=== PATIENT | male | born 1955 | race Caucasian/White ===

== ENCOUNTER 2023-05-24 04:20 | Inpatient (IN) | payer OTHER ==
[2023-05-23 16:53] VITALS: BMI 25.0
[2023-05-24] MEDS ORDERED: cefOXitin SODIUM 2 GM VIAL (RESTRICTED TO ID) IVPB ONE ×3 (07:30→08:10)
[2023-05-24] MEDS ORDERED: GABAPENTIN 300 MG CAPSULE PO ONE (07:30)
[2023-05-24] MEDS ORDERED: SCOPOLAMINE HYDROBROMIDE 1 PATCH PATCH.TD72 TD ONE (07:30)
[2023-05-24] MEDS ORDERED: ACETAMINOPHEN 1000 MG/100 ML BAG IVPB ONE (07:30)
[2023-05-24] MEDS ORDERED: INDOCYANINE GREEN 25 MG/10 ML VIAL IVPUSH ONE ×3 (07:41→08:57)
[2023-05-24] MEDS ORDERED: BUPIVACAINE HCL/PF 0.25% (2.5MG/ML) 10 ML VIAL ONE (07:41)
[2023-05-24] MEDS ORDERED: HEPARIN NA (PORCINE) 5,000 UNITS/ML 1ML VIAL ONE (07:41)
[2023-05-24] MEDS ORDERED: ROCURONIUM BROMIDE 50 MG/5 ML SYRINGE ONE ×2 (07:44→08:46)
[2023-05-24] MEDS ORDERED: LIDOCAINE HCL/PF 2% SDV 5ML VIAL ONE (07:44)
[2023-05-24] MEDS ORDERED: PROPOFOL 20 ML ONE (07:44)
[2023-05-24] MEDS ORDERED: FENTANYL CITRATE/PF 50 MCG/ML VIAL ONE ×6 (07:44→15:31)
[2023-05-24] MEDS ORDERED: MIDAZOLAM HCL 2 MG/2 ML SINGLE DOSE VIAL ONE (07:44)
[2023-05-24] MEDS ORDERED: HEPARIN NA (PORCINE) 5,000 UNITS/ML 1ML VIAL SQ ONE (08:12)
[2023-05-24] MEDS ORDERED: HYDROmorphone HCl 2 MG/ML VIAL ONE ×2 (08:47→10:03)
[2023-05-24] MEDS ORDERED: ONDANSETRON 4 MG/2 ML VIAL ONE ×2 (08:49→11:29)
[2023-05-24] MEDS ORDERED: DEXAMETHASONE SOD PHOSPHATE 4 MG/1 ML VIAL ONE (08:49)
[2023-05-24] MEDS ORDERED: BUPIVACAINE HCL/PF 0.25% (2.5MG/ML) 10 ML VIAL IJ ONE (08:56)
[2023-05-24] MEDS ORDERED: SEVOFLURANE 250 ML BTL ONE (09:10)
[2023-05-24] MEDS ORDERED: SUGAMMADEX SODIUM 200 MG/2 ML VIAL ONE (13:36)
[2023-05-24] MEDS ORDERED: CEFOXITIN SODIUM 1 GM IVPB ONE (13:46)
[2023-05-24] MEDS ORDERED: cefOXitin SODIUM 1 GM VIAL (RESTRICTED TO ID) IVPB ONE (13:50)
[2023-05-24] MEDS ORDERED: ONDANSETRON 4 MG/2 ML VIAL IVPUSH PRN (14:24)
[2023-05-24] MEDS ORDERED: ACETAMINOPHEN INJECTION 100 ML IVPB ONE (14:39)
[2023-05-24] MEDS: ACETAMINOPHEN 1000 MG/100 ML BAG IVPB SCH ×2 (14:43→21:21)
[2023-05-24] MEDS ORDERED: IBUPROFEN 800 MG/8 ML IJ IVPB PRN (14:59)
[2023-05-24] MEDS ORDERED: oxyCODONE HCL 5 MG TABLET PO PRN ×2 (15:00)
[2023-05-24] MEDS: LACTATED RINGERS SOLUTION 1,000 ML IV SCH (16:55)
[2023-05-24] MEDS ORDERED: CEFOXITIN SODIUM 2 GM in DEXTROSE 5%-WATER 100 ML IVPB ONE (17:00)
[2023-05-24] MEDS: ATORVASTATIN CA 20 MG TABLET (FP) PO SCH (22:26)
[2023-05-24] MEDS: GABAPENTIN 300 MG CAPSULE PO SCH (22:26)
[2023-05-24] MEDS: morphine SULFATE 4 MG/ML VIAL IVPUSH PRN (22:27)
[2023-05-25] MEDS: ACETAMINOPHEN 1000 MG/100 ML BAG IVPB SCH ×2 (02:55→10:42)
[2023-05-25] MEDS ORDERED: DOCUSATE SODIUM 100 MG CAPSULE (FP) PO SCH (06:00)
[2023-05-25 09:29] LABS: HEMATOCRIT 29.8 % (35.4-49); HEMOGLOBIN 10.4 GM/dL (11.7-16.9); MCH 34.5 pg (25.7-33.7); MCHC 34.8 g/dl (32.0-35.9); MEAN CELL VOLUME 99.2 fl (80-96); MEAN PLT VOLUME 8.8 fl (7.5-11.1); PLATELET COUNT 216 10^3/uL (134-434); RDW 15.9 % (11.9-15.9); WHITE BLOOD COUNT 6.9 K/mm3 (4.0-10.0)
[2023-05-25 09:58] LABS: POTASSIUM 3.7 mmol/L (3.5-5.1)
[2023-05-25] MEDS ORDERED: ENOXAPARIN NA (PORCINE) 30 MG/0.3 ML DISP.SYRIN SQ SCH ×2 (10:00)
[2023-05-25] MEDS ORDERED: LOSARTAN 50MG/HCTZ 12.5MG 1 TAB PO SCH (10:00)
[2023-05-25 10:02] LABS: BLOOD UREA NITROGEN 24.9 mg/dL (7-18); CALCIUM 7.5 mg/dL (8.5-10.1)
[2023-05-25 10:26] LABS: CREATININE 1.9 mg/dL (0.55-1.3)
[2023-05-25] MEDS: morphine SULFATE 4 MG/ML VIAL IVPUSH PRN (10:46)
[2023-05-25] MEDS: GABAPENTIN 300 MG CAPSULE PO SCH ×2 (12:52→21:29)
[2023-05-25] MEDS ORDERED: SODIUM CHLORIDE 0.9% 500 ML INFUS.BAG IV ONE (18:56)
[2023-05-25] MEDS: LACTATED RINGERS SOLUTION 1,000 ML IV SCH (18:58)
[2023-05-25] MEDS: ATORVASTATIN CA 20 MG TABLET (FP) PO SCH (21:29)
[2023-05-25] MEDS ORDERED: ACETAMINOPHEN 1000 MG/100 ML BAG IVPB ONE (21:58)
[2023-05-26 09:30] LABS: HEMATOCRIT 28.2 % (35.4-49); HEMOGLOBIN 9.7 GM/dL (11.7-16.9); MCH 35.3 pg (25.7-33.7); MCHC 34.6 g/dl (32.0-35.9); PLATELET COUNT 190 10^3/uL (134-434); RBC 2.76 M/mm3 (4.00-5.60); RDW 16.2 % (11.9-15.9); WHITE BLOOD COUNT 8.5 K/mm3 (4.0-10.0)
[2023-05-26 09:41] LABS: CHLORIDE 108 mmol/L (98-107); POTASSIUM 3.2 mmol/L (3.5-5.1); SODIUM 142 mmol/L (136-145)
[2023-05-26 09:55] LABS: BLOOD UREA NITROGEN 23.1 mg/dL (7-18)
[2023-05-26] MEDS: ENOXAPARIN NA (PORCINE) 40 MG/0.4 ML DISP.SYRIN SQ SCH (09:59)
[2023-05-26] MEDS: ACETAMINOPHEN 325 MG TABLET (FP) PO PRN ×2 (09:59→20:31)
[2023-05-26] MEDS: GABAPENTIN 300 MG CAPSULE PO SCH ×2 (09:59→21:16)
[2023-05-26 10:00] LABS: MAGNESIUM 1.2 mg/dL (1.8-2.4)
[2023-05-26 10:02] LABS: ANION GAP 7 mmol/L (4-13); CO2 27 mmol/L (21-32); GLUCOSE,RANDOM 99 mg/dL (74-106)
[2023-05-26 10:03] LABS: PHOSPHOROUS 1.6 mg/dL (2.5-4.9)
[2023-05-26 10:05] LABS: CREATININE 2.1 mg/dL (0.55-1.3)
[2023-05-26 10:07] LABS: CALCIUM 6.9 mg/dL (8.5-10.1)
[2023-05-26] MEDS ORDERED: MAGNESIUM 2GM/50ML STERILE WATER IVPB IVPB ONE (11:15)
[2023-05-26] MEDS: LACTATED RINGERS SOLUTION 1,000 ML IV SCH ×2 (13:09→19:36)
[2023-05-26] MEDS: ATORVASTATIN CA 20 MG TABLET (FP) PO SCH (21:16)
[2023-05-27] MEDS: ACETAMINOPHEN 325 MG TABLET (FP) PO PRN (02:19)
[2023-05-27] MEDS: LACTATED RINGERS SOLUTION 1,000 ML IV SCH ×2 (05:24→14:03)
[2023-05-27 09:19] LABS: BASO % 0.4 % (0-2.0); EOS % 1.1 % (0-4.5); HEMATOCRIT 29.3 % (35.4-49); MCH 34.5 pg (25.7-33.7); MCHC 34.1 g/dl (32.0-35.9); MEAN PLT VOLUME 8.6 fl (7.5-11.1); MONO % 6.6 % (3.8-10.2); NEUT % 84.9 % (42.8-82.8); PLATELET COUNT 234 10^3/uL (134-434); RDW 15.8 % (11.9-15.9); WHITE BLOOD COUNT 8.7 K/mm3 (4.0-10.0)
[2023-05-27 10:25] LABS: CALCIUM 7.1 mg/dL (8.5-10.1)
[2023-05-27 10:26] LABS: ALBUMIN 2.7 g/dl (3.4-5.0); BLOOD UREA NITROGEN 16.2 mg/dL (7-18); MAGNESIUM 1.7 mg/dL (1.8-2.4)
[2023-05-27 10:29] LABS: CREATININE 1.2 mg/dL (0.55-1.3)
[2023-05-27 10:30] LABS: TOT PROT 5.9 g/dl (6.4-8.2)
[2023-05-27 10:31] LABS: BILIRUBIN,TOTAL 0.8 mg/dL (0.2-1)
[2023-05-27] MEDS: ENOXAPARIN NA (PORCINE) 40 MG/0.4 ML DISP.SYRIN SQ SCH (10:37)
[2023-05-27] MEDS: GABAPENTIN 300 MG CAPSULE PO SCH ×2 (10:37→22:07)
[2023-05-27] MEDS: KCL 10 MEQ IVPB 10 MEQ/100 ML INFUS.BAG IVPB SCH ×4 (15:17→16:58)
[2023-05-27] MEDS ORDERED: POTASSIUM CHLORIDE ORAL LIQUID 20 MEQ/15 ML PO ONE (18:00)
[2023-05-27] MEDS: POTASSIUM CHLORIDE TABS 20 MEQ TABLET.ER (FP) PO SCH (22:07)
[2023-05-27] MEDS: ATORVASTATIN CA 20 MG TABLET (FP) PO SCH (22:07)
[2023-05-27] MEDS: MAGNESIUM OXIDE 400 MG TABLET (FP) PO SCH (22:07)
[2023-05-28 08:21] LABS: BASO % 0.8 % (0-2.0); HEMATOCRIT 33.3 % (35.4-49); HEMOGLOBIN 11.5 GM/dL (11.7-16.9); LYMPH % 9.8 % (8-40); MCH 34.7 pg (25.7-33.7); MCHC 34.7 g/dl (32.0-35.9); MEAN CELL VOLUME 100.2 fl (80-96); MEAN PLT VOLUME 8.8 fl (7.5-11.1); NEUT % 82.4 % (42.8-82.8); PLATELET COUNT 308 10^3/uL (134-434); RBC 3.33 M/mm3 (4.00-5.60); RDW 15.9 % (11.9-15.9); WHITE BLOOD COUNT 9.9 K/mm3 (4.0-10.0)
[2023-05-28 08:42] LABS: POTASSIUM 3.8 mmol/L (3.5-5.1)
[2023-05-28 08:47] LABS: ALBUMIN 3.2 g/dl (3.4-5.0); BLOOD UREA NITROGEN 11.9 mg/dL (7-18); MAGNESIUM 1.5 mg/dL (1.8-2.4)
[2023-05-28 08:50] LABS: CREATININE 1.2 mg/dL (0.55-1.3)
[2023-05-28 08:51] LABS: BILIRUBIN,TOTAL 0.8 mg/dL (0.2-1); TOT PROT 7.1 g/dl (6.4-8.2)
[2023-05-28] MEDS: MAGNESIUM OXIDE 400 MG TABLET (FP) PO SCH ×2 (09:09→21:14)
[2023-05-28] MEDS: POTASSIUM CHLORIDE TABS 20 MEQ TABLET.ER (FP) PO SCH ×2 (09:09→21:14)
[2023-05-28] MEDS: GABAPENTIN 300 MG CAPSULE PO SCH ×2 (09:09→21:14)
[2023-05-28] MEDS: ENOXAPARIN NA (PORCINE) 40 MG/0.4 ML DISP.SYRIN SQ SCH (09:09)
[2023-05-28] MEDS ORDERED: LOSARTAN 50MG/HCTZ 12.5MG 1 TAB PO SCH (10:30)
[2023-05-28] MEDS: LOSARTAN POTASSIUM 50 MG TABLET PO SCH (12:11)
[2023-05-28] MEDS: HYDROCHLOROTHIAZIDE 12.5 MG CAPSULE (FP) PO SCH (12:11)
[2023-05-28] MEDS: ATORVASTATIN CA 20 MG TABLET (FP) PO SCH (21:14)
[2023-05-28] MEDS: ACETAMINOPHEN 325 MG TABLET (FP) PO PRN (21:21)
[2023-05-29] MEDS: LACTATED RINGERS SOLUTION 1,000 ML IV SCH ×2 (06:34→17:59)
[2023-05-29] MEDS: MAGNESIUM OXIDE 400 MG TABLET (FP) PO SCH ×2 (10:35→21:18)
[2023-05-29] MEDS: ENOXAPARIN NA (PORCINE) 40 MG/0.4 ML DISP.SYRIN SQ SCH (10:35)
[2023-05-29] MEDS: POTASSIUM CHLORIDE TABS 20 MEQ TABLET.ER (FP) PO SCH ×2 (10:36→21:22)
[2023-05-29] MEDS: GABAPENTIN 300 MG CAPSULE PO SCH ×2 (10:36→21:18)
[2023-05-29] MEDS: HYDROCHLOROTHIAZIDE 12.5 MG CAPSULE (FP) PO SCH (10:36)
[2023-05-29] MEDS: LOSARTAN POTASSIUM 50 MG TABLET PO SCH (10:36)
[2023-05-29 10:50] LABS: BASO % 0.7 % (0-2.0); EOS % 3.1 % (0-4.5); HEMATOCRIT 29.5 % (35.4-49); HEMOGLOBIN 9.9 GM/dL (11.7-16.9); LYMPH % 10.8 % (8-40); MCH 34.1 pg (25.7-33.7); MCHC 33.5 g/dl (32.0-35.9); MEAN CELL VOLUME 101.6 fl (80-96); MEAN PLT VOLUME 8.4 fl (7.5-11.1); NEUT % 76.4 % (42.8-82.8); PLATELET COUNT 262 10^3/uL (134-434); RBC 2.91 M/mm3 (4.00-5.60); RDW 16.1 % (11.9-15.9); WHITE BLOOD COUNT 7.8 K/mm3 (4.0-10.0)
[2023-05-29 11:14] LABS: CHLORIDE 111 mmol/L (98-107); SODIUM 142 mmol/L (136-145)
[2023-05-29 11:15] LABS: CALCIUM 7.7 mg/dL (8.5-10.1)
[2023-05-29 11:16] LABS: BLOOD UREA NITROGEN 9.2 mg/dL (7-18); CO2 26 mmol/L (21-32); GLUCOSE,RANDOM 116 mg/dL (74-106); MAGNESIUM 1.4 mg/dL (1.8-2.4)
[2023-05-29 11:19] LABS: SGOT/AST 25 U/L (15-37); SGPT/ALT 17 U/L (13-61)
[2023-05-29 11:21] LABS: BILIRUBIN,TOTAL 0.5 mg/dL (0.2-1); TOT PROT 5.8 g/dl (6.4-8.2)
[2023-05-29 11:22] LABS: ALK PHOS 98 U/L (45-117)
[2023-05-29 11:27] LABS: ALBUMIN 2.6 g/dl (3.4-5.0); ANION GAP 5 mmol/L (4-13); POTASSIUM 2.8 mmol/L (3.5-5.1)
[2023-05-29] MEDS ORDERED: MAGNESIUM SULF 50% (8.12 MEQ/2 ML-1 GM VIAL) IVPB ONE (12:00)
[2023-05-29] MEDS: KCL 10 MEQ IVPB 10 MEQ/100 ML INFUS.BAG IVPB SCH ×3 (12:51→15:19)
[2023-05-29] MEDS ORDERED: POTASSIUM CHLORIDE ORAL LIQUID 20 MEQ/15 ML PO ONE (14:45)
[2023-05-29] MEDS: metroNIDAZOLE 250 MG TABLET PO SCH ×2 (15:23→21:22)
[2023-05-29] MEDS: VANCOMYCIN ORAL SOLUTION 125 MG/2.5 ML PO SCH (18:00)
[2023-05-29 18:40] LABS: POTASSIUM 3.3 mmol/L (3.5-5.1)
[2023-05-29] MEDS: ATORVASTATIN CA 20 MG TABLET (FP) PO SCH (21:22)
[2023-05-29] MEDS: ACETAMINOPHEN 325 MG TABLET (FP) PO PRN (21:23)
[2023-05-30] MEDS: VANCOMYCIN ORAL SOLUTION 125 MG/2.5 ML PO SCH ×4 (00:12→18:19)
[2023-05-30] MEDS: LACTATED RINGERS SOLUTION 1,000 ML IV SCH ×2 (02:12→21:10)
[2023-05-30] MEDS: metroNIDAZOLE 250 MG TABLET PO SCH (05:11)
[2023-05-30] MEDS ORDERED: SODIUM CHLORIDE 1,000 ML IV STA ×2 (08:37→08:49)
[2023-05-30] MEDS ORDERED: LACTATED RINGERS SOLUTION 1,000 ML/1,000 ML INFUS.BAG IV STA (08:57)
[2023-05-30] MEDS: SODIUM CHLORIDE 1,000 ML IV STA ×2 (09:00→13:36)
[2023-05-30 09:59] LABS: BASO % 0.2 % (0-2.0); HEMATOCRIT 28.9 % (35.4-49); LYMPH % 0.9 % (8-40); MCH 34.7 pg (25.7-33.7); MCHC 34.6 g/dl (32.0-35.9); MEAN CELL VOLUME 100.4 fl (80-96); MEAN PLT VOLUME 8.6 fl (7.5-11.1); MONO % 0.9 % (3.8-10.2); PLATELET COUNT 210 10^3/uL (134-434); RBC 2.88 M/mm3 (4.00-5.60); WHITE BLOOD COUNT 6.4 K/mm3 (4.0-10.0)
[2023-05-30 10:20] LABS: CHLORIDE 110 mmol/L (98-107); SODIUM 141 mmol/L (136-145)
[2023-05-30 10:28] LABS: ALBUMIN 2.5 g/dl (3.4-5.0); BLOOD UREA NITROGEN 7.5 mg/dL (7-18); CALCIUM 7.7 mg/dL (8.5-10.1); CO2 22 mmol/L (21-32); GLUCOSE,RANDOM 98 mg/dL (74-106); MAGNESIUM 1.1 mg/dL (1.8-2.4)
[2023-05-30 10:30] LABS: SGPT/ALT 17 U/L (13-61)
[2023-05-30 10:31] LABS: BILIRUBIN,TOTAL 1.9 mg/dL (0.2-1); SGOT/AST 27 U/L (15-37); TOT PROT 5.7 g/dl (6.4-8.2)
[2023-05-30 10:34] LABS: ALK PHOS 145 U/L (45-117); ANION GAP 9 mmol/L (4-13); PHOSPHOROUS 0.9 mg/dL (2.5-4.9); POTASSIUM 2.9 mmol/L (3.5-5.1)
[2023-05-30] MEDS ORDERED: MAGNESIUM SULF 50% (8.12 MEQ/2 ML-1 GM VIAL) IVPB ONE (10:41)
[2023-05-30 11:23] LABS: ANISOCYTOSIS 1+; MACROCYTOSIS 0
[2023-05-30] MEDS ORDERED: POTASSIUM PHOSPHATE 30 MM in SODIUM CHLORIDE 500 ML IVPB ONE (12:00)
[2023-05-30] MEDS: ENOXAPARIN NA (PORCINE) 40 MG/0.4 ML DISP.SYRIN SQ SCH (13:25)
[2023-05-30] MEDS: POTASSIUM CHLORIDE TABS 20 MEQ TABLET.ER (FP) PO SCH ×2 (13:25→22:31)
[2023-05-30] MEDS: HYDROCHLOROTHIAZIDE 12.5 MG CAPSULE (FP) PO SCH (13:25)
[2023-05-30] MEDS: GABAPENTIN 300 MG CAPSULE PO SCH ×2 (13:26→22:31)
[2023-05-30] MEDS: MAGNESIUM OXIDE 400 MG TABLET (FP) PO SCH (13:26)
[2023-05-30] MEDS: KCL 10 MEQ IVPB 10 MEQ/100 ML INFUS.BAG IVPB SCH ×4 (13:26→21:11)
[2023-05-30] MEDS: LOSARTAN POTASSIUM 50 MG TABLET PO SCH (13:26)
[2023-05-30] MEDS ORDERED: VANCOMYCIN ORAL SOLUTION 125 MG/2.5 ML PO ONE (15:15)
[2023-05-30] MEDS: PIPERACILLIN/TAZOB 3.375 GM 3.375 GM in DEXTROSE 5%-WATER - 50 ML IVPB SCH ×2 (16:37→18:19)
[2023-05-30] MEDS: MAGNESIUM 2GM/50ML STERILE WATER IVPB IVPB ONE ×2 (17:31→17:32)
[2023-05-30 20:05] LABS: BASO % 0.3 % (0-2.0); EOS % 0.2 % (0-4.5); HEMATOCRIT 25.8 % (35.4-49); HEMOGLOBIN 8.9 GM/dL (11.7-16.9); LYMPH % 3.5 % (8-40); MCH 33.9 pg (25.7-33.7); MCHC 34.3 g/dl (32.0-35.9); MEAN CELL VOLUME 98.9 fl (80-96); MEAN PLT VOLUME 8.8 fl (7.5-11.1); PLATELET COUNT 201 10^3/uL (134-434); RBC 2.61 M/mm3 (4.00-5.60); RDW 15.9 % (11.9-15.9); WHITE BLOOD COUNT 8.3 K/mm3 (4.0-10.0)
[2023-05-30 20:20] LABS: POTASSIUM 3.2 mmol/L (3.5-5.1)
[2023-05-30 20:23] LABS: ALBUMIN 2.2 g/dl (3.4-5.0); BLOOD UREA NITROGEN 8.6 mg/dL (7-18); CALCIUM 7.2 mg/dL (8.5-10.1)
[2023-05-30 20:26] LABS: CREATININE 1.1 mg/dL (0.55-1.3)
[2023-05-30 20:28] LABS: BILIRUBIN,TOTAL 1.2 mg/dL (0.2-1); TOT PROT 5.1 g/dl (6.4-8.2)
[2023-05-30] MEDS ORDERED: ONDANSETRON 4 MG/2 ML VIAL IVPUSH PRN (20:42)
[2023-05-30] MEDS: ATORVASTATIN CA 20 MG TABLET (FP) PO SCH (22:31)
[2023-05-30] MEDS: NAPH,MB-DB/K PH,MBDB POWDER PACKET PO SCH (22:31)
[2023-05-31] MEDS: VANCOMYCIN ORAL SOLUTION 125 MG/2.5 ML PO SCH ×4 (00:12→17:27)
[2023-05-31 00:29] LABS: EPI CELLS 3 /uL (0-25.1); HYALINE CASTS 1 /uL (0-3.1); PH,URINE 6.5 (5.0-8.0); URINE APPEARANCE CLEAR; URINE BACTERIA 1811 /uL (0-1359); URINE BILIRUBIN NEGATIVE (NEGATIVE); URINE COLOR YELLOW; URINE GLUCOSE (UA) NEGATIVE (NEGATIVE); URINE KETONE NEGATIVE (NEGATIVE); URINE LEUK ESTERASE 1+ (NEGATIVE); URINE NITRITE POSITIVE (NEGATIVE); URINE PROTEIN TRACE (NEGATIVE); URINE RBC 84 /uL (0-23.9); URINE UROBILINOGEN 0.2 mg/dL (0.2-1.0); URINE WBC 189 /uL (0-25.8)
[2023-05-31 00:48] LABS: BASO % 0.2 % (0-2.0); EOS % 0.2 % (0-4.5); HEMATOCRIT 24.5 % (35.4-49); HEMOGLOBIN 8.5 GM/dL (11.7-16.9); LYMPH % 2.8 % (8-40); MCH 34.2 pg (25.7-33.7); MCHC 34.6 g/dl (32.0-35.9); MEAN CELL VOLUME 98.9 fl (80-96); MEAN PLT VOLUME 8.3 fl (7.5-11.1); MONO % 7.3 % (3.8-10.2); NEUT % 89.5 % (42.8-82.8); PLATELET COUNT 170 10^3/uL (134-434); RBC 2.48 M/mm3 (4.00-5.60); RDW 15.8 % (11.9-15.9)
[2023-05-31] MEDS: PIPERACILLIN/TAZOB 3.375 GM 3.375 GM in DEXTROSE 5%-WATER - 50 ML IVPB SCH (01:01)
[2023-05-31 01:05] LABS: CHLORIDE 113 mmol/L (98-107); POTASSIUM 3.1 mmol/L (3.5-5.1); SODIUM 140 mmol/L (136-145)
[2023-05-31 01:08] LABS: ALBUMIN 2.2 g/dl (3.4-5.0); ANION GAP 3 mmol/L (4-13); BLOOD UREA NITROGEN 9.4 mg/dL (7-18); CO2 24 mmol/L (21-32); GLUCOSE,RANDOM 130 mg/dL (74-106); MAGNESIUM 1.8 mg/dL (1.8-2.4)
[2023-05-31 01:10] LABS: CREATININE 1.1 mg/dL (0.55-1.3)
[2023-05-31 01:11] LABS: PHOSPHOROUS 3.1 mg/dL (2.5-4.9); SGOT/AST 38 U/L (15-37); SGPT/ALT 26 U/L (13-61)
[2023-05-31 01:12] LABS: BILIRUBIN,TOTAL 0.9 mg/dL (0.2-1); TOT PROT 5.2 g/dl (6.4-8.2)
[2023-05-31 01:13] LABS: ALK PHOS 117 U/L (45-117)
[2023-05-31 01:26] LABS: CALCIUM 6.9 mg/dL (8.5-10.1)
[2023-05-31] MEDS ORDERED: MAGNESIUM OXIDE 400 MG TABLET (FP) PO ONE (02:31)
[2023-05-31] MEDS ORDERED: POTASSIUM CHLORIDE ORAL LIQUID 20 MEQ/15 ML PO ONE (03:30)
[2023-05-31] MEDS: NAPH,MB-DB/K PH,MBDB POWDER PACKET PO SCH ×3 (05:35→14:24)
[2023-05-31 08:35] LABS: BASO % 0.3 % (0-2.0); EOS % 0.6 % (0-4.5); HEMATOCRIT 24.3 % (35.4-49); HEMOGLOBIN 8.2 GM/dL (11.7-16.9); LYMPH % 3.9 % (8-40); MCH 33.8 pg (25.7-33.7); MEAN CELL VOLUME 99.6 fl (80-96); MEAN PLT VOLUME 8.8 fl (7.5-11.1); MONO % 8.8 % (3.8-10.2); NEUT % 86.4 % (42.8-82.8); PLATELET COUNT 191 10^3/uL (134-434); RBC 2.44 M/mm3 (4.00-5.60); RDW 16.1 % (11.9-15.9); WHITE BLOOD COUNT 7.4 K/mm3 (4.0-10.0)
[2023-05-31 08:42] LABS: POTASSIUM 3.3 mmol/L (3.5-5.1)
[2023-05-31 08:51] LABS: ALBUMIN 2.2 g/dl (3.4-5.0); BLOOD UREA NITROGEN 9.6 mg/dL (7-18); CALCIUM 7.6 mg/dL (8.5-10.1); MAGNESIUM 1.9 mg/dL (1.8-2.4)
[2023-05-31 08:54] LABS: CREATININE 1.2 mg/dL (0.55-1.3)
[2023-05-31 08:56] LABS: BILIRUBIN,TOTAL 0.7 mg/dL (0.2-1); TOT PROT 5.2 g/dl (6.4-8.2)
[2023-05-31] MEDS: GABAPENTIN 300 MG CAPSULE PO SCH ×2 (09:25→22:04)
[2023-05-31] MEDS: LOSARTAN POTASSIUM 50 MG TABLET PO SCH (09:25)
[2023-05-31] MEDS: ENOXAPARIN NA (PORCINE) 40 MG/0.4 ML DISP.SYRIN SQ SCH (09:25)
[2023-05-31] MEDS: POTASSIUM CHLORIDE TABS 20 MEQ TABLET.ER (FP) PO SCH ×2 (09:25→22:04)
[2023-05-31] MEDS ORDERED: ACETAMINOPHEN 500 MG TABLET (FP) PO PRN (09:35)
[2023-05-31] MEDS: POTASSIUM CHLORIDE 20 MEQ in LACTATED RINGERS SOLUTION 1,000 ML IV SCH ×2 (11:52→17:27)
[2023-05-31] MEDS: ONDANSETRON 4 MG/2 ML VIAL IVPUSH SCH ×2 (17:27→22:05)
[2023-05-31] MEDS: ATORVASTATIN CA 20 MG TABLET (FP) PO SCH (22:04)
[2023-06-01] MEDS: VANCOMYCIN ORAL SOLUTION 125 MG/2.5 ML PO SCH ×4 (01:19→18:39)
[2023-06-01] MEDS: POTASSIUM CHLORIDE 20 MEQ in LACTATED RINGERS SOLUTION 1,000 ML IV SCH ×3 (02:18→18:40)
[2023-06-01] MEDS: ONDANSETRON 4 MG/2 ML VIAL IVPUSH SCH ×3 (02:31→16:57)
[2023-06-01] MEDS: GABAPENTIN 300 MG CAPSULE PO SCH ×2 (10:08→22:05)
[2023-06-01] MEDS: ENOXAPARIN NA (PORCINE) 40 MG/0.4 ML DISP.SYRIN SQ SCH (10:08)
[2023-06-01] MEDS: POTASSIUM CHLORIDE TABS 20 MEQ TABLET.ER (FP) PO SCH ×2 (10:08→22:06)
[2023-06-01] MEDS: LOSARTAN POTASSIUM 50 MG TABLET PO SCH (10:08)
[2023-06-01 10:19] LABS: BASO % 0.5 % (0-2.0); EOS % 1.8 % (0-4.5); HEMATOCRIT 24.6 % (35.4-49); HEMOGLOBIN 8.4 GM/dL (11.7-16.9); LYMPH % 6.3 % (8-40); MCH 33.7 pg (25.7-33.7); MCHC 34.2 g/dl (32.0-35.9); MEAN CELL VOLUME 98.5 fl (80-96); MEAN PLT VOLUME 8.9 fl (7.5-11.1); MONO % 8.2 % (3.8-10.2); NEUT % 83.2 % (42.8-82.8); PLATELET COUNT 230 10^3/uL (134-434); RDW 15.9 % (11.9-15.9); WHITE BLOOD COUNT 7.7 K/mm3 (4.0-10.0)
[2023-06-01 10:27] LABS: POTASSIUM 3.7 mmol/L (3.5-5.1)
[2023-06-01 10:35] LABS: CALCIUM 7.9 mg/dL (8.5-10.1)
[2023-06-01 10:36] LABS: ALBUMIN 2.3 g/dl (3.4-5.0); BLOOD UREA NITROGEN 9.2 mg/dL (7-18); MAGNESIUM 1.7 mg/dL (1.8-2.4)
[2023-06-01 10:38] LABS: PHOSPHOROUS 1.8 mg/dL (2.5-4.9)
[2023-06-01 10:40] LABS: BILIRUBIN,TOTAL 0.4 mg/dL (0.2-1); TOT PROT 5.3 g/dl (6.4-8.2)
[2023-06-01] MEDS ORDERED: MAGNESIUM SULF 50% (8.12 MEQ/2 ML-1 GM VIAL) IVPB ONE (12:45)
[2023-06-01] MEDS: NAPH,MB-DB/K PH,MBDB POWDER PACKET PO SCH ×2 (12:49→22:05)
[2023-06-01] MEDS: PSYLLIUM 5.85 GM PACKET PO SCH ×2 (16:56→22:05)
[2023-06-01] MEDS: BANATROL PLUS POWDER PACKET PO SCH (22:05)
[2023-06-01] MEDS: ATORVASTATIN CA 20 MG TABLET (FP) PO SCH (22:05)
[2023-06-02] MEDS: VANCOMYCIN ORAL SOLUTION 125 MG/2.5 ML PO SCH ×4 (00:19→18:19)
[2023-06-02] MEDS: POTASSIUM CHLORIDE 20 MEQ in LACTATED RINGERS SOLUTION 1,000 ML IV SCH ×4 (02:08→22:41)
[2023-06-02] MEDS: BANATROL PLUS POWDER PACKET PO SCH ×3 (06:30→22:12)
[2023-06-02] MEDS: NAPH,MB-DB/K PH,MBDB POWDER PACKET PO SCH ×4 (06:30→22:12)
[2023-06-02] MEDS: POTASSIUM CHLORIDE TABS 20 MEQ TABLET.ER (FP) PO SCH ×2 (09:53→21:47)
[2023-06-02] MEDS: GABAPENTIN 300 MG CAPSULE PO SCH ×2 (09:54→21:47)
[2023-06-02 09:55] LABS: BASO % 0.5 % (0-2.0); HEMATOCRIT 27.2 % (35.4-49); MCH 33.3 pg (25.7-33.7); MEAN CELL VOLUME 100.7 fl (80-96); MEAN PLT VOLUME 9.4 fl (7.5-11.1); MONO % 8.8 % (3.8-10.2); NEUT % 79.7 % (42.8-82.8); PLATELET COUNT 245 10^3/uL (134-434); RDW 16.2 % (11.9-15.9); WHITE BLOOD COUNT 6.3 K/mm3 (4.0-10.0)
[2023-06-02] MEDS: LOSARTAN POTASSIUM 50 MG TABLET PO SCH (09:55)
[2023-06-02] MEDS: HYDROCHLOROTHIAZIDE 12.5 MG CAPSULE (FP) PO SCH (09:55)
[2023-06-02] MEDS: ENOXAPARIN NA (PORCINE) 40 MG/0.4 ML DISP.SYRIN SQ SCH (09:55)
[2023-06-02] MEDS: PSYLLIUM 5.85 GM PACKET PO SCH ×2 (09:56→22:12)
[2023-06-02 10:35] LABS: POTASSIUM 4.5 mmol/L (3.5-5.1)
[2023-06-02 10:38] LABS: CALCIUM 7.9 mg/dL (8.5-10.1)
[2023-06-02 10:39] LABS: BLOOD UREA NITROGEN 7.1 mg/dL (7-18); MAGNESIUM 1.8 mg/dL (1.8-2.4)
[2023-06-02 10:42] LABS: ALBUMIN 2.4 g/dl (3.4-5.0)
[2023-06-02 10:43] LABS: CREATININE 0.9 mg/dL (0.55-1.3)
[2023-06-02 10:45] LABS: BILIRUBIN,TOTAL 0.5 mg/dL (0.2-1); TOT PROT 5.6 g/dl (6.4-8.2)
[2023-06-02 10:46] LABS: PHOSPHOROUS 1.6 mg/dL (2.5-4.9)
[2023-06-02] MEDS: ATORVASTATIN CA 20 MG TABLET (FP) PO SCH (21:47)
[2023-06-03] MEDS: VANCOMYCIN ORAL SOLUTION 125 MG/2.5 ML PO SCH ×5 (00:05→23:23)
[2023-06-03] MEDS: BANATROL PLUS POWDER PACKET PO SCH ×3 (05:18→21:57)
[2023-06-03 09:44] LABS: BASO % 0.7 % (0-2.0); EOS % 1.9 % (0-4.5); HEMATOCRIT 29.3 % (35.4-49); HEMOGLOBIN 10.2 GM/dL (11.7-16.9); LYMPH % 10.2 % (8-40); MCH 34.2 pg (25.7-33.7); MCHC 34.8 g/dl (32.0-35.9); MEAN CELL VOLUME 98.5 fl (80-96); MEAN PLT VOLUME 9.1 fl (7.5-11.1); MONO % 7.4 % (3.8-10.2); NEUT % 79.8 % (42.8-82.8); PLATELET COUNT 275 10^3/uL (134-434); RBC 2.97 M/mm3 (4.00-5.60); RDW 16.3 % (11.9-15.9); WHITE BLOOD COUNT 7.4 K/mm3 (4.0-10.0)
[2023-06-03 10:07] LABS: POTASSIUM 4.1 mmol/L (3.5-5.1)
[2023-06-03 10:10] LABS: CALCIUM 8.3 mg/dL (8.5-10.1)
[2023-06-03 10:11] LABS: ALBUMIN 2.8 g/dl (3.4-5.0); BLOOD UREA NITROGEN 7.1 mg/dL (7-18); MAGNESIUM 1.3 mg/dL (1.8-2.4)
[2023-06-03] MEDS: ENOXAPARIN NA (PORCINE) 40 MG/0.4 ML DISP.SYRIN SQ SCH (10:12)
[2023-06-03] MEDS: PSYLLIUM 5.85 GM PACKET PO SCH ×2 (10:13→21:57)
[2023-06-03] MEDS: GABAPENTIN 300 MG CAPSULE PO SCH ×2 (10:13→21:57)
[2023-06-03] MEDS: HYDROCHLOROTHIAZIDE 12.5 MG CAPSULE (FP) PO SCH (10:13)
[2023-06-03] MEDS: LOSARTAN POTASSIUM 50 MG TABLET PO SCH (10:13)
[2023-06-03] MEDS: POTASSIUM CHLORIDE TABS 20 MEQ TABLET.ER (FP) PO SCH ×2 (10:13→21:56)
[2023-06-03 10:14] LABS: PHOSPHOROUS 1.4 mg/dL (2.5-4.9)
[2023-06-03 10:16] LABS: BILIRUBIN,TOTAL 0.6 mg/dL (0.2-1); TOT PROT 6.2 g/dl (6.4-8.2)
[2023-06-03] MEDS: POTASSIUM CHLORIDE 20 MEQ in LACTATED RINGERS SOLUTION 1,000 ML IV SCH (10:30)
[2023-06-03] MEDS ORDERED: MAGNESIUM SULF 50% (8.12 MEQ/2 ML-1 GM VIAL) IVPB ONE (11:45)
[2023-06-03] MEDS ORDERED: MAGNESIUM 2GM/50ML STERILE WATER IVPB IVPB ONE ×2 (12:30→13:45)
[2023-06-03] MEDS ORDERED: SODIUM PHOSPHATE - 45 MM in SODIUM CHLORIDE 500 ML IVPB ONE (13:00)
[2023-06-03] MEDS: ATORVASTATIN CA 20 MG TABLET (FP) PO SCH (21:56)
[2023-06-04] MEDS: VANCOMYCIN ORAL SOLUTION 125 MG/2.5 ML PO SCH ×3 (07:11→17:06)
[2023-06-04] MEDS: BANATROL PLUS POWDER PACKET PO SCH ×2 (07:12→13:24)
[2023-06-04] MEDS: POTASSIUM CHLORIDE 20 MEQ in LACTATED RINGERS SOLUTION 1,000 ML IV SCH ×3 (07:12→08:09)
[2023-06-04 09:36] LABS: BASO % 0.8 % (0-2.0); EOS % 1.3 % (0-4.5); HEMATOCRIT 33.2 % (35.4-49); HEMOGLOBIN 11.2 GM/dL (11.7-16.9); LYMPH % 9.7 % (8-40); MCH 33.3 pg (25.7-33.7); MCHC 33.7 g/dl (32.0-35.9); MEAN CELL VOLUME 98.8 fl (80-96); MEAN PLT VOLUME 9.6 fl (7.5-11.1); MONO % 5.5 % (3.8-10.2); NEUT % 82.7 % (42.8-82.8); PLATELET COUNT 327 10^3/uL (134-434); RBC 3.36 M/mm3 (4.00-5.60); RDW 16.2 % (11.9-15.9); WHITE BLOOD COUNT 9.1 K/mm3 (4.0-10.0)
[2023-06-04 09:46] LABS: POTASSIUM 3.7 mmol/L (3.5-5.1)
[2023-06-04 09:48] LABS: ALBUMIN 3.2 g/dl (3.4-5.0); BLOOD UREA NITROGEN 6.9 mg/dL (7-18); CALCIUM 8.2 mg/dL (8.5-10.1); MAGNESIUM 1.4 mg/dL (1.8-2.4)
[2023-06-04 09:53] LABS: BILIRUBIN,TOTAL 0.6 mg/dL (0.2-1); TOT PROT 6.5 g/dl (6.4-8.2)
[2023-06-04 09:56] VITALS: RESP 20
[2023-06-04] MEDS: GABAPENTIN 300 MG CAPSULE PO SCH (09:56)
[2023-06-04] MEDS: POTASSIUM CHLORIDE TABS 20 MEQ TABLET.ER (FP) PO SCH (09:56)
[2023-06-04] MEDS: LOSARTAN POTASSIUM 50 MG TABLET PO SCH (09:57)
[2023-06-04] MEDS: ENOXAPARIN NA (PORCINE) 40 MG/0.4 ML DISP.SYRIN SQ SCH (09:57)
[2023-06-04] MEDS: PSYLLIUM 5.85 GM PACKET PO SCH (09:58)
[2023-06-04] MEDS ORDERED: NAPH,MB-DB/K PH,MBDB POWDER PACKET PO SCH (10:00)
[2023-06-04] MEDS ORDERED: MAGNESIUM SULF 50% (8.12 MEQ/2 ML-1 GM VIAL) IVPB ONE (10:16)
[2023-06-04] MEDS ORDERED: MAGNESIUM 2GM/50ML STERILE WATER IVPB IVPB ONE (12:00)
[2023-06-04 13:27] LABS: PHOSPHOROUS 3.4 mg/dL (2.5-4.9)
[2023-06-04 15:23] VITALS: BP 149/78; PULSE 96; TEMP 98.1
[2023-06-04] MEDS ORDERED: MAGNESIUM OXIDE 400 MG TABLET (FP) PO SCH (22:00)
== END 2023-06-04 17:22 | disposition home or self-care (01) | DRG 330 ==
LOC: J2C 04:20 → J8W 17:34 → J7W 05-26 21:59 → J8W 05-28 09:26
PROVIDERS: ADMIT Internal Medicine; ATTEND Nurse Practitioner Acute Care
PROC: 0T778DZ Dilation of Left Ureter with Intraluminal Device, Via Natural or Artificial Opening Endoscopic (ICD-10-PCS; 2023-05-24)
PROC: 0DNW4ZZ Release Peritoneum, Percutaneous Endoscopic Approach (ICD-10-PCS; 2023-05-24)
PROC: 0T9B80Z Drainage of Bladder with Drainage Device, Via Natural or Artificial Opening Endoscopic (ICD-10-PCS; 2023-05-24)
PROC: 8E0W4CZ Robotic Assisted Procedure of Trunk Region, Percutaneous Endoscopic Approach (ICD-10-PCS; 2023-05-24)
PROC: 4A1BXSH Monitoring of Gastrointestinal Vascular Perfusion using Indocyanine Green Dye, External Approach (ICD-10-PCS; 2023-05-24)
PROC: 0DTN4ZZ Resection of Sigmoid Colon, Percutaneous Endoscopic Approach (ICD-10-PCS; principal; 2023-05-24 08:00)
PROC: 0DNL4ZZ Release Transverse Colon, Percutaneous Endoscopic Approach (ICD-10-PCS; 2023-05-24 08:00)
PROC: 0T768DZ Dilation of Right Ureter with Intraluminal Device, Via Natural or Artificial Opening Endoscopic (ICD-10-PCS; 2023-05-24 08:00)
DX: K57.20 Diverticulitis of large intestine with perforation and abscess without bleeding (principal); A04.72 Enterocolitis due to Clostridium difficile, not specified as recurrent; N32.89 Other specified disorders of bladder; I10 Essential (primary) hypertension; E78.5 Hyperlipidemia, unspecified; K66.0 Peritoneal adhesions (postprocedural) (postinfection); E83.42 Hypomagnesemia; E87.6 Hypokalemia; E88.09 Other disorders of plasma-protein metabolism, not elsewhere classified; E86.0 Dehydration; R00.0 Tachycardia, unspecified; R94.31 Abnormal electrocardiogram [ECG] [EKG]; R50.9 Fever, unspecified; I95.9 Hypotension, unspecified
CPT/HCPCS: 36415; 71275-TC; 72192-TC; 74177-TC; 80048; 80053; 81003; 83735; 84100; 84132; 85025; 85027; 86140; 86850; 86900; 86901; 87040; 87086; 87186; 87324; 87449; 93005; 93010; 94760; 97116-GP; 97161-GP; J1644; Q9967